=== PATIENT | male | born 1975 | race Two or more races ===

== ENCOUNTER 2020-02-12 04:57 | Emergency (ER) | payer MEDICAID ==
[~2020-02-12] VITALS: Ht 180.3 cm; Wt 102.3 kg
[2020-02-12] MEDS ORDERED: LOSA50TA37 PO (05:01)
[2020-02-12] MEDS ORDERED: HYDR-1475 PO (05:01)
[2020-02-12] MEDS ORDERED: ASPI-556 PO (05:01)
[2020-02-12] MEDS ORDERED: ACETAMINOPHEN 325 MG TABLET PO ONE (05:30)
[2020-02-12 06:10] VITALS: BP 162/86
[2020-02-12] MEDS ORDERED: AMOX TR/POT CLAV 875 MG/125 MG TABLET PO ONE (06:15)
== END 2020-02-12 06:12 | disposition home or self-care (01) ==
LOC: EMS 04:57
DX: K04.7 Periapical abscess without sinus (principal); R60.0 Localized edema; I10 Essential (primary) hypertension; Z79.82 Long term (current) use of aspirin